=== PATIENT | male | born 1935 | race Two or more races ===

== ENCOUNTER 2023-12-01 07:53 | Inpatient (IN) | payer MEDICAID, OTHER ==
[~2023-12-01] VITALS: Ht 160 cm; Wt 63.6 kg
[~2023-12-01 07:53] MED LIST: ALBU0.084
[2023-12-01 08:00] VITALS: PULSE 82; RESP 22; TEMP 98.9; O2SAT 97
[2023-12-01] MEDS ORDERED: IOHEXOL 300 MG/ML 100ML BOTTLE IJ ONE (08:21)
[2023-12-01 08:44] LABS: Basophils # (auto) 0 10 ^3/uL (0-0.2); Basophils % (auto) 0.7 % (0.0-2.0); Eosinophils # (auto) 0.2 10 ^3/uL (0-0.8); Eosinophils % (auto) 6.1 % (0.0-7.0); Hematocrit 42.5 % (41.0-53.0); Hemoglobin 14.4 g/dL (13.5-17.5); Lymphocytes # (auto) 0.7 10 ^3/uL (0.4-5.4); Lymphocytes % (auto) 20.6 % (10.0-50.0); Mean Corpuscular Hgb Conc. 33.8 g/dL (32.0-36.0); Mean Corpuscular Volume 97.6 fL (80.0-100.0); Monocytes # (auto) 0.3 10 ^3/uL (0-1.3); Monocytes % (auto) 9.8 % (0.0-12.0); Neutrophils # (auto) 2.1 10 ^3/uL (1.6-8.6); Neutrophils % (auto) 62.8 % (37.0-80.0); Nucleated Red Blood Cells % 0.1 %; Platelet Count (auto) 196 10^3/uL (140-450); Red Blood Cells 4.35 10^6/uL (4.5-5.90); White Blood Cell 3.4 10^3/uL (4.4-10.8)
[2023-12-01 08:51] LABS: Chloride 111 mmol/L (98-107); Potassium 3.5 mmol/L (3.5-5.1); Sodium 139 mmol/L (136-145)
[2023-12-01 08:52] LABS: Anion Gap 2 (5-15); Carbon Dioxide 26 mmol/L (20-30)
[2023-12-01 08:53] LABS: Calcium 9.2 mg/dL (8.7-10.4)
[2023-12-01 08:57] LABS: BUN/Creatinine Ratio 16.9 (10.0-20.0); Blood Urea Nitrogen 11 mg/dL (9-23); Glucose 109 mg/dL (74-106)
[2023-12-01 08:58] LABS: Blood Alcohol < 3.0 mg/dL (<10)
[2023-12-01] MEDS: SODIUM CHLORIDE 0.9% 1,000 ML IV ONE (09:02)
[2023-12-01 09:39] LABS: Urine WBC None Seen /hpf (0 - 3)
[2023-12-01 10:01] VITALS: BP 174/98; PULSE 89; RESP 22; O2SAT 97
[2023-12-01 10:16] LABS: Urine Bacteria FEW /hpf (None Seen); Urine Blood TRACE /uL (Negative); Urine Clarity Clear (Clear); Urine Color Light-Yellow (Yellow); Urine Protein, UAD Negative (Negative); Urine Specific Gravity 1.018 (1.001-1.035); Urine Urobilinogen Normal (Negative); Urine pH 5.5 (5.0-9.0)
[2023-12-01] MEDS ORDERED: SODIUM CHLORIDE 0.9% 1,000 ML IV SCH (12:00)
[2023-12-01] MEDS ORDERED: MORPHINE SULFATE INJ 2 MG/ml SYRG IV PRN (12:00)
[2023-12-01] MEDS ORDERED: ONDANSETRON HCL 4 MG/2 ML VIAL IV PRN (12:00)
[2023-12-01] MEDS ORDERED: DOCUSATE SOD 100 MG CAP PO PRN (12:00)
[2023-12-01] MEDS ORDERED: NITROGLYCERIN 0.4 MG SL TAB SL PRN (12:00)
== END 2023-12-01 12:07 | disposition left against medical advice (07) | DRG 384 ==
LOC: EDBD 07:53 → ER 07:53 → OVERFLOW 11:53
PROVIDERS: ADMIT Nurse Practitioner Family; ATTEND Nurse Practitioner Family
DX: S00.83XA Contusion of other part of head, initial encounter (principal); G93.41 Metabolic encephalopathy; S00.512A Abrasion of oral cavity, initial encounter; J45.909 Unspecified asthma, uncomplicated; E87.6 Hypokalemia; Z53.29 Procedure and treatment not carried out because of patient's decision for other reasons; Z79.899 Other long term (current) drug therapy; Y93.89 Activity, other specified; Y99.8 Other external cause status; V89.2XXA Person injured in unspecified motor-vehicle accident, traffic, initial encounter; Y92.410 Unspecified street and highway as the place of occurrence of the external cause
CPT/HCPCS: 36415; 70450; 70486; 71045; 71260; 72125; 74177; 80048; 80320; 81001; 84484; 85025; G0378